=== PATIENT | male | born 1965 | race Caucasian/White ===

== ENCOUNTER 2018-07-17 14:48 | Emergency (ER) | payer SELFPAY ==
[~2018-07-17] VITALS: Ht 180.3 cm; Wt 75.0 kg
[~2018-07-17 14:48] MED LIST: NORCO 10-325 TA1 TAB PO
[2018-07-17 14:56] VITALS: Ht 180.3 cm; Wt 75.0 kg
[2018-07-17 16:26] LABS: BASOPHILS 0.2 % (0-2); EOSINOPHILS 4.5 % (0-7); HEMATOCRIT 42.2 % (42.0-54.0); HEMOGLOBIN 14.3 g/dL (13.5-17.5); IMMATURE GRANULOCYTES 0.5 % (0-5); LYMPHOCYTES 13.6 % (15-50); MCH 30.4 pg (26.0-34.0); MCHC 33.9 g/dL (31.0-37.0); MCV 89.6 fL (80.0-100.0); MEAN PLATELET VOLUME 9.6 fL (7.4-10.4); MONOCYTES 7.1 % (2-11); NEUTROPHILS 74.1 % (40-80); RBC 4.71 10x6/uL (4.20-6.10); WBC 15.2 10x3/uL (4.8-10.8)
[2018-07-17 16:29] LABS: PLATELET COUNT 373 10x3/uL (130-400)
[2018-07-17 16:47] LABS: ALBUMIN 3.1 g/dL (3.4-5.0); ALKALINE PHOSPHATASE 93 U/L (46-116); ALT (SGPT) 13 U/L (10-68); AMYLASE - SERUM 64 U/L (25-115); CALC OSMOLALITY 276 mosm/kg (275-300); CARBON DIOXIDE 31.4 mmol/L (21.0-32.0); CHLORIDE - SERUM 101 mmol/L (98-107); CREATININE - SERUM 0.9 mg/dL (0.6-1.3); GLUCOSE 94 mg/dL (74-106); LIPASE 97 U/L (73-393); POTASSIUM - SERUM 4.4 mmol/L (3.5-5.1); PROTEIN - SERUM 7.3 g/dL (6.4-8.2); SODIUM 138 mmol/L (136-145); UREA NITROGEN 14 mg/dL (7-18); eGFR NON AFRICAN AMERICAN > 90 mL/min (90-120)
[2018-07-17 19:36] LABS: APPEARANCE CLEAR (CLEAR); COLOR STRAW (YELLOW); SPECIFIC GRAVITY 1.005 (1.005-1.020)
[2018-07-17 19:37] LABS: BILIRUBIN NEGATIVE (NEGATIVE); GLUCOSE NEGATIVE (NEGATIVE); KETONE NEGATIVE (NEGATIVE); NITRITE NEGATIVE (NEGATIVE); PROTEIN NEGATIVE (NEGATIVE); UROBILINOGEN NORMAL (NORMAL)
[2018-07-17] MEDS ORDERED: NORCO 7.5/325 T1 TA1 PO (21:49)
[2018-07-17] MEDS ORDERED: ZOFRAN ODT4 MG/UDTAB PO (21:49)
[2018-07-17 22:06] VITALS: BP 168/99
== END 2018-07-17 22:06 | disposition home or self-care (01) ==
LOC: D.ER 14:48
PROVIDERS: Family Medicine
DX: N50.89 Other specified disorders of the male genital organs (principal); R10.31 Right lower quadrant pain; N43.3 Hydrocele, unspecified; K40.20 Bilateral inguinal hernia, without obstruction or gangrene, not specified as recurrent; I10 Essential (primary) hypertension

== ENCOUNTER 2018-07-19 18:21 | Emergency (ER) | payer SELFPAY ==
[2018-07-17 14:56] VITALS: BMI 23.0
[~2018-07-19 18:21] MED LIST changes: +NORCO 7.5/325 T1 TA1 PO; +ZOFRAN ODT4 MG/UDTAB PO
== END 2018-07-19 18:29 | disposition left against medical advice (07) ==
LOC: D.ER 18:21
DX: Z02.9 Encounter for administrative examinations, unspecified (principal)